=== PATIENT | male | born 1935 | race African-American/Black ===

== ENCOUNTER → 2016-10-10 | Outpatient (CLI) | payer MEDICARE ==
[~2016-10-10] MED LIST: ALLERGY10 M1 PO; AMLODIPINE BESY10 MG PO; ARICEPT PO; ASPIRIN EC81 M1 PO; ASPIRIN81 M1 PO; ASPIRIN81 MG PO; BACTRIM DS TABL1 TA1 PO; CIPRO PO; CIPRO250 MG PO; CLARITIN10 MG PO; DARVOCET-N 1001 TA1 DOB; FLOMAX0.4 M1 PO; FOLIC ACID1 MG PO; HYDRALAZINE HCL50 MG PO; KEFLEX250 M1 PO; MULTI-DAY VITAM1 TAB PO; NITROFURANTOIN100 M4 PO; OMEPRAZOLE10 MG PO; PROCRIT SUBQ; REMERON15 MG PO; SEROQUEL25 MG PO; SODIUM BICARBO650 MG PO; SODIUM BICARBONATE 1 MEQ/ML PO; TAMSULOSIN HCL0.4 MG PO
[2016-10-10 19:05] LABS: URINE APPEARANCE CLOUDY; URINE BILIRUBIN NEG (NEG); URINE BLOOD NEG (NEG); URINE COLOR YELLOW; URINE GLUCOSE NEG (NEG); URINE KETONE NEG (NEG); URINE LEUKOCYTE ESTERASE 3+ (NEG); URINE NITRATE NEG (NEG); URINE PH 5.5 (5-8); URINE PROTEIN 1+ (NEG); URINE SPECIFIC GRAVITY 1.015 (1.003-1.035); URINE UROBILINOGEN 0.2 MG/DL (NEG)
[2016-10-10 19:08] LABS: URINE BACTERIA AUWI 4+ (NEGATIVE); URINE SQUAMOUS EPITHELIAL CELL NONE SEEN /[HPF]; UWBCS1 AUWI INNUM (0-5)
[2016-10-10 19:09] LABS: URINE SOURCE CLEAN CATCH
[2016-10-10 19:14] LABS: BASOPHIL# 0.1 X10e3 (0-0.3); BASOPHIL% 1.2 % (0-2.5); EOSINOPHIL# 0.1 X10e3 (0-0.7); EOSINOPHIL% 2.1 % (0.0-7.0); HEMATOCRIT 34.6 % (38.0-50.0); HEMOGLOBIN 10.7 gm/dL (13.0-16.0); LYMPHOCYTE# 1.1 X10e3 (1.0-3.5); LYMPHOCYTE% 19.6 % (17.0-45.0); MEAN CELL VOLUME 89.7 FL (83-96); MEAN CORPUSCULAR HEMOGLOBIN 27.8 PG (28-34); MEAN PLATELET VOLUME 8.1 FL (6.5-11.5); MONOCYTE# 0.7 X10e3 (0-1.0); MONOCYTE% 12.3 % (3.0-12.0); NEUTROPHIL# 3.7 X10e3 (1.5-7.1); NEUTROPHIL% 64.8 % (40-75); PLATELET COUNT 275 X10e3 (140-420); RED BLOOD COUNT 3.85 X10e (3.90-5.60); RED CELL DISTRIBUTION WIDTH 17.9 % (11.0-15.5); WHITE BLOOD COUNT 5.7 X10e3 (4.0-10.5)
[2016-10-10 19:15] LABS: DIFF IND NO
[2016-10-10 19:20] LABS: CREATININE,RANDOM URINE 117 mg/dL; TOTAL PROTEIN,RANDOM URINE 50 mg/dl (<10)
[2016-10-10 19:29] LABS: ALBUMIN SERUM 3.9 g/dL (3.5-5.0); BILIRUBIN,TOTAL 0.3 mg/dL (0.2-2.0); BUN/CREATININE RATIO 15.71; CALCIUM SERUM 8.7 mg/dL (8.4-10.2); CREATININE SERUM 2.8 mg/dL (0.6-1.4); POTASSIUM 4.6 mmol/L (3.5-5.1); PROTEIN TOTAL SERUM 6.9 g/dL (6.0-8.3)
== END | disposition home or self-care (01) ==
LOC: CLAB 18:17
PROVIDERS: Internal Medicine Nephrology
DX: N18.3 Chronic kidney disease, stage 3 (moderate) (principal)
CPT/HCPCS: 36415; 80053; 81003; 82570; 84156; 85025